=== PATIENT | male | born 1945 | race African-American/Black ===

== ENCOUNTER 2016-03-27 19:35 | Emergency (ER) | payer MEDICARE ==
[2014-01-15 06:53] VITALS: BMI 24.2
[~2016-03-27 19:35] MED LIST: ASPIRIN325 MG PO; HYDROCHLOROTHIA25 MG PO; HYDROCODONE-APA1 TAB PO; LISINOPRIL10 MG PO
[2016-03-27 20:16] LABS: BASOPHILS 0.1 % (0.0-2.0); EOSINOPHILS 0 % (0-7); HEMATOCRIT 40.2 % (42.0-54.0); HEMOGLOBIN 13.6 g/dL (13.5-17.5); IMMATURE GRANULOCYTES 0.1 % (0-5); LYMPHOCYTES 12.1 % (15-50); MCH 31.4 pg (26.0-34.0); MCHC 33.8 g/dL (31.0-37.0); MCV 92.8 fL (80.0-100.0); MEAN PLATELET VOLUME 9.9 fL (7.4-10.4); MONOCYTES 9.3 % (2-11); NEUTROPHILS 78.4 % (40-80); RBC 4.33 10x6/uL (4.20-6.10); RDW 15.1 % (11.5-14.5); WBC 7.8 10x3/uL (4.8-10.8)
[2016-03-27 20:17] LABS: PLATELET COUNT 188 10x3/uL (130-400)
[2016-03-27 20:43] LABS: ALBUMIN 3.3 g/dL (3.4-5.0); ANION GAP 15.7 mmol/L (8-16); BILIRUBIN - TOTAL 0.36 mg/dL (0.2-1.3); CALCIUM 8.9 mg/dL (8.5-10.1); CARBON DIOXIDE 24.9 mmol/L (21.0-32.0); CREATININE - SERUM 1.8 mg/dL (0.6-1.3); POTASSIUM - SERUM 3.6 mmol/L (3.5-5.1); PROTEIN - SERUM 7.7 g/dL (6.4-8.2)
== END 2016-03-27 22:30 | disposition home or self-care (01) ==
LOC: D.ER 19:35
PROVIDERS: Emergency Medicine
DX: R50.9 Fever, unspecified (principal); R91.8 Other nonspecific abnormal finding of lung field; N28.9 Disorder of kidney and ureter, unspecified; I10 Essential (primary) hypertension; F17.200 Nicotine dependence, unspecified, uncomplicated